=== PATIENT | male | born 1965 | race Hispanic/Latino ===

== ENCOUNTER 2018-01-31 11:36 | Emergency (ER) | payer OTHER ==
[2018-01-31] MEDS ORDERED: DEXAMETHASONE 10 MG/ML VIAL ONE (13:29)
[2018-01-31] MEDS ORDERED: KETOROLAC 30 MG/ML INJ ONE (13:30)
--- NOTE | 2018-01-31 13:31 | EDPHYS ---
Physician Documentation [facility] Name: Dimitrios Hernandez Age: 52 yrs Sex: Male : 1965 Arrival Date: 01/31/2018 Time: 11:37 Bed Treatment Private MD: ED Physician Thomas Arechiga HPI: 01/31 13:22 This 52 yrs old Male presents to ER via Ambulatory with complaints of Arm Pain.ps1 13:22 The patient or guardian complains of decreased range of motion. The complaints affect ps1 the right arm. Context: resulted from unknown cause. Onset: The symptoms/episode began/occurred 1 week(s) ago. Treatment prior to arrival includes: no previous treatment. Modifying factors: The symptoms are alleviated by hydrocodone, but patient is out and his doctor moved to [place] per patient. . Associated signs and symptoms: The patient has no apparent associated signs or symptoms. Severity of symptoms: At their worst the symptoms were moderate, in the emergency department the symptoms are unchanged. has chronic pain. Historical: - Allergies: 11:45 No Known Allergies; ph - PMHx: 11:45 CAD; cancer, colon; Hypertension; Myocardial infarction; Seizures; ph - Immunization history:: Adult Immunizations unknown. - Social history:: Smoking status: Patient uses tobacco products, smokes one-half pack cigarettes per day. ROS: 13:22 Constitutional: Negative for fever, chills, and weight loss, Eyes: Negative for injury, ps1 pain, redness, and discharge, Cardiovascular: Negative for chest pain, palpitations, and edema, Respiratory: Negative for shortness of breath, cough, wheezing, and pleuritic chest pain, Abdomen/GI: Negative for abdominal pain, nausea, vomiting, diarrhea, and constipation, Back: Negative for injury and pain, Skin: Negative for injury, rash, and discoloration, Neuro: Negative for headache, weakness, numbness, tingling, and seizure. 13:22 MS/extremity: Positive for pain. Exam: 13:22 Constitutional: This is a well developed, well nourished patient who is awake, alert, ps1 and in no acute distress. Head/Face: Normocephalic, atraumatic. Eyes: Pupils equal round and reactive to light, extra-ocular motions intact. Lids and lashes normal. Conjunctiva and sclera are non-icteric and not injected. ENT: Nares patent. No nasal discharge, no septal abnormalities noted. Tympanic membranes are normal and external auditory canals are clear. Oropharynx with no redness, swelling, or masses, exudates, or evidence of obstruction, uvula midline. Mucous membranes moist. Chest/axilla: Normal chest wall appearance and motion. Nontender with no deformity. No lesions are appreciated. Cardiovascular: Regular rate and rhythm. No gallops, murmurs, or rubs. Normal PMI, no JVD. No pulse deficits. Respiratory: Lungs have equal breath sounds bilaterally, clear to auscultation and percussion. No rales, rhonchi or wheezes noted. No increased work of breathing, no retractions or nasal flaring. Abdomen/GI: Soft, non-tender, with normal bowel sounds. No distension or tympany. No guarding or rebound. No evidence of tenderness throughout. Back: No spinal tenderness. No costovertebral tenderness. Full range of motion. 13:22 Musculoskeletal/extremity: Extremities: grossly normal except: noted in the right arm: decreased ROM, however can abduct the arm when distracted. Other movements WNL. . Vital Signs: 11:43 BP 127 / 87; Pulse 61; Resp 18; Temp 98.2; Pulse Ox 100% on R/A; Weight 58.97 kg; ph Height 5 ft. 4 in. (162.56 cm); Pain 10/10; 13:35 BP 125 / 81; Pulse 67; Resp 14; Temp 98; Pulse Ox 99% ; Pain 8/10; rs2 11:43 Body Mass Index 22.31 (58.97 kg, 162.56 cm) ph MDM: 13:22 ED course: Pt out of hydrocodone. Pt needs new pain medication Pt will follow up ps1 with Jessica or Deanna for MRI/EMG and pain control. Toradol and decadron in ED. Home with anaprox, medrol, robaxin. 13:30 Patient medically screened. ps1 01/31 13:09 Order name: Extremity Venous Uni Ltd; Complete Time: 14:23 EDMS Administered Medications: 13:59 Drug: TORadol 30 mg Route: IM; Site: right gluteus; rs2 13:59 Drug: Decadron 10 mg Route: IM; Site: right gluteus; rs2 Disposition: 01/31/18 13:30 Discharged to Home. Impression: Pain in right arm. - Condition is Stable. - Discharge Instructions: Musculoskeletal Pain. - Prescriptions for Anaprox DS 550 mg Oral Tablet - take 1 tablet by ORAL route every 12 hours As needed; 20 tablet. Robaxin 500 mg Oral Tablet - take 2 tablet by ORAL route every 6 hours As needed; 40 tablet. Medrol (Ismael) 4 mg Oral Tablets, Dose Pack - take 1 tablet by ORAL route as directed - follow package instructions; 1 packet. - Medication Reconciliation Form, Thank You Letter, Antibiotic Education, Prescription Opioid Use form. - Follow up: Emergency Department; When: As needed; Reason: Worsening of condition. Follow up: Carson Lopez MD; When: Upon discharge from the Emergency Department; Reason: Recheck today's complaints, Continuance of care, Re-evaluation by your physician. Signatures: Dispatcher [employer] Zara Ramos RN RN Ela Schmidt RN RN Rony, Lian rs2 Thomas Arechiga MD MD ps1 Corrections: (The following items were deleted from the chart) 13:16 13:01 Extremity Venous Uni Ltd+VAS.RAD.BRZ ordered. [facility] EDTX
--- NOTE | 2018-01-31 13:31 | ER ---
Nurse's Notes [facility] Name: Dimitrios Hernandez Age: 52 yrs Sex: Male : 1965 Arrival Date: 01/31/2018 Time: 11:37 Bed Treatment Private MD: Diagnosis: Pain in right arm Presentation: 01/31 11:41 Presenting complaint: Patient states: " My right arm has been hurting for about a week" ph Pt denies injury, no swelling noted, denies numbness/tingling, no swelling noted, radial pulses strong and equal. Transition of care: patient was not received from another setting of care. Onset of symptoms was January 31, 2018. Initial Sepsis Screen: Does the patient meet any 2 criteria? No. Patient's initial sepsis screen is negative. Does the patient have a suspected source of infection? No. Patient's initial sepsis screen is negative. Care prior to arrival: None. 11:41 Method Of Arrival: Ambulatory 11:41 Acuity: ANTOINE 4 ph Historical: - Allergies: 11:45 No Known Allergies; ph - PMHx: 11:45 CAD; cancer, colon; Hypertension; Myocardial infarction; Seizures; ph - Immunization history:: Adult Immunizations unknown. - Social history:: Smoking status: Patient uses tobacco products, smokes one-half pack cigarettes per day. Screenin:22 Abuse screen: Denies threats or abuse. Nutritional screening: No deficits noted. rs2 Tuberculosis screening: No symptoms or risk factors identified. Fall Risk None identified. Assessment: 13:22 General: Appears in no apparent distress. well groomed, well developed, Behavior is rs2 calm, cooperative, appropriate for age. Pain: Complains of pain in anterior aspect of right shoulder, right bicep and dorsal aspect of right forearm Pain currently is 10 out of 10 on a pain scale. Quality of pain is described as aching, Is continuous, Aggravated by increased activity, Noted to be. Neuro: No deficits noted. Cardiovascular: No deficits noted. Respiratory: No deficits noted. Musculoskeletal: Tenderness present in anterior aspect of right shoulder Reports Limited ROM noted to right arm. Pt c/o right shoulder pain radiating down right arm. Pt denies injury. Vital Signs: 11:43 BP 127 / 87; Pulse 61; Resp 18; Temp 98.2; Pulse Ox 100% on R/A; Weight 58.97 kg; ph Height 5 ft. 4 in. (162.56 cm); Pain 10/10; 13:35 BP 125 / 81; Pulse 67; Resp 14; Temp 98; Pulse Ox 99% ; Pain 8/10; rs2 11:43 Body Mass Index 22.31 (58.97 kg, 162.56 cm) ph ED Course: 11:37 Patient arrived in ED. as 11:43 Triage completed. ph 11:45 Arm band placed on. ph 13:13 Thomas Arechiga MD is Attending Physician. ps1 13:19 Patient taken to ultrasound. via wheelchair. lc3 13:22 Lian Uribe is Primary Nurse. rs2 13:22 Patient has correct armband on for positive identification. Bed in low position. Call rs2 light in reach. Side rails up X 1. 13:30 Carson Lopez MD is Referral Physician. ps1 13:48 Extremity Venous Uni Ltd In Process Unspecified. EDMS Administered Medications: 13:59 Drug: TORadol 30 mg Route: IM; Site: right gluteus; rs2 13:59 Drug: Decadron 10 mg Route: IM; Site: right gluteus; rs2 Outcome: 13:30 Discharge ordered by . ps1 14:45 Patient left the ED. iw Signatures: Dispatcher [employer] EDMS Marita Escobar Irene, RN RN Ela Schmidt RN RN Lenard [facility] Lian Uribe rs2 Thomas Arechiga MD MD ps1
--- NOTE | 2018-01-31 14:15 | RAD REPORT ---
EXAM DESCRIPTION: VAS - Extremity Venous Uni Ltd - 01/31/2018 1:49 pm CLINICAL HISTORY: Right upper extremity pain COMPARISON: None. FINDINGS: Right upper extremity venous system was interrogated with Doppler technique. Normal flow, compressibility and augmentation was noted. There is no DVT present. Small crescentic fluid collections about the right shoulder noted which could indicate bursitis. IMPRESSION: No evidence of right upper extremity deep venous thrombosis.
[2018-01-31 14:52] VITALS: BP 125/81; TEMP 98; O2SAT 99
== END 2018-01-31 14:45 | disposition home or self-care (01) ==
LOC: ER 11:36
DX: M79.601 Pain in right arm (principal); I10 Essential (primary) hypertension; F17.210 Nicotine dependence, cigarettes, uncomplicated; Z85.038 Personal history of other malignant neoplasm of large intestine
CPT/HCPCS: 93971; 96372; 99284; J1100

== ENCOUNTER 2019-07-28 14:29 | Emergency (ER) | payer OTHER ==
[2019-07-28 15:24] LABS: Hematocrit 39.8 % (39.6-49.0); Lymphocytes % 22.8 % (15.3-44.8); MPV 9.4 fL (7.6-11.3)
[2019-07-28 15:25] LABS: Absolute Lymphocytes (CBC) 1.7 K/uL (0.7-4.9); Basophils % 0.7 % (0-1.3)
[2019-07-28 15:45] LABS: Albumin 3.7 g/dL (3.4-5.0); Bilirubin Direct 0.3 mg/dL (0-0.2); Bilirubin Total 1.6 mg/dL (0.2-1.0); Potassium 3.6 mmol/L (3.5-5.1)
--- NOTE | 2019-07-28 17:31 | RAD REPORT ---
EXAM DESCRIPTION: CTAbdomen Pelvis W Contrast - 07/28/2019 5:07 pm CLINICAL HISTORY: Abdominal pain. abd pain COMPARISON: Abdomen Pelvis W Contrast dated 07/17/2017; Abdomen Pelvis W Contrast dated 04/18/2017; Abdomen Pelvis W Contrast dated 11/17/2016 TECHNIQUE: Biphasic CT imaging of the abdomen and pelvis was performed with 100 ml non-ionic IV cont rast. All CT scans are performed using dose optimization technique as appropriate and may include automated exposure control or mA/KV adjustment according to patient size. FINDINGS: The lung bases are clear. The liver, spleen, pancreas, adrenal glands and kidneys are within normal limits. No bowel obstruction, free air, free fluid or abscess. The appendix is normal. No evidence of signi ficant lymphadenopathy. No suspicious bony findings. IMPRESSION: No acute intra-abdominal or pelvic finding.
--- NOTE | 2019-07-28 17:35 | ER ---
Nurse's Notes [facility] Name: Dimitrios Hernandez Age: 53 yrs Sex: Male : 1965 Arrival Date: 07/28/2019 Time: 14:35 Bed 20 Private MD: Unknown, Unknown Diagnosis: Lower abdominal pain, unspecified Presentation: 07/28 14:40 Presenting complaint: Patient states: I had Colon CA about 2 years ago and the pain is la1 in the same place now and they told me it will probably come back. Transition of care: patient was not received from another setting of care. Onset of symptoms was July 28, 2019. Risk Assessment: Do you want to hurt yourself or someone else? Patient reports no desire to harm self or others. Initial Sepsis Screen: Does the patient meet any 2 criteria? No. Patient's initial sepsis screen is negative. Does the patient have a suspected source of infection? No. Patient's initial sepsis screen is negative. Care prior to arrival: None. 14:40 Method Of Arrival: Ambulatory la1 14:40 Acuity: ANTOINE 3 la1 Historical: - Allergies: 14:41 No Known Allergies; la1 - PMHx: 14:41 CAD; cancer, colon; Hypertension; Myocardial infarction; Seizures; la1 - Immunization history:: Adult Immunizations up to date. - Social history:: Smoking status: Patient/guardian denies using tobacco. - Ebola Screening: : No symptoms or risks identified at this time. Screenin:12 Abuse screen: Denies threats or abuse. Nutritional screening: No deficits noted. em Tuberculosis screening: No symptoms or risk factors identified. Fall Risk None identified. Assessment: 15:00 General: Appears in no apparent distress. comfortable, Behavior is calm, cooperative, em Denies fever. Pain: Complains of pain in left lower quadrant Pain currently is 8 out of 10 on a pain scale. Quality of pain is described as sharp. Neuro: Level of Consciousness is awake, alert, obeys commands, Oriented to person, place, time, situation, Appropriate for age. Cardiovascular: Denies chest pain, Capillary refill < 3 seconds Patient's skin is warm and dry. Respiratory: Airway is patent Respiratory effort is even, unlabored, Respiratory pattern is regular, symmetrical. GI: Abdomen is flat, Bowel sounds present X 4 quads. Abd is soft X 4 quads Abdomen is tender to palpation in left lower quadrant Patient currently denies nausea, vomiting. Derm: Skin is intact, is healthy with good turgor, Skin is pink, warm \T\ dry. Musculoskeletal: Capillary refill < 3 seconds, Range of motion: intact in all extremities. 15:34 Reassessment: Patient appears in no apparent distress at this time. Patient and/or em family updated on plan of care and expected duration. Pain level reassessed. Patient is alert, oriented x 3, equal unlabored respirations, skin warm/dry/pink. finished PO contrast, tolerated well, CT notified. 16:52 Reassessment: Patient appears in no apparent distress at this time. Patient and/or em family updated on plan of care and expected duration. Pain level reassessed. Patient is alert, oriented x 3, equal unlabored respirations, skin warm/dry/pink. 17:44 Reassessment: Patient appears in no apparent distress at this time. Patient and/or em family updated on plan of care and expected duration. Pain level reassessed. Patient is alert, oriented x 3, equal unlabored respirations, skin warm/dry/pink. Vital Signs: 14:41 BP 138 / 87; Pulse 98; Resp 16; Temp 98.6; Pulse Ox 100% on R/A; Weight 63.5 kg; Height la1 5 ft. 6 in. (167.64 cm); 15:52 BP 144 / 82; Pulse 61; Resp 20; Pulse Ox 100% on R/A; Pain 8/10; em 16:52 BP 126 / 61; Pulse 75; Resp 18; Pulse Ox 98% on R/A; em 17:45 BP 124 / 73; Pulse 70; Resp 18; Pulse Ox 99% on R/A; Pain 5/10; em 14:41 Body Mass Index 22.60 (63.50 kg, 167.64 cm) la1 ED Course: 14:35 Patient arrived in ED. ag5 14:35 None, None is Private Physician. ag5 14:35 Unknown, Unknown is Private Physician. ag5 14:41 Triage completed. la1 14:42 Arm band placed on left wrist. la1 14:44 Getachew Everett LVN is Primary Nurse. em 14:52 Jonna Neves FNP-C is PHCP. snw 14:52 Floyd Reyes MD is Attending Physician. snw 15:10 Initial lab(s) drawn, by me, sent to lab. Inserted saline lock: 20 gauge in right em forearm, using aseptic technique. Blood collected. 15:12 Patient has correct armband on for positive identification. Placed in gown. Bed in low em position. Call light in reach. Pulse ox on. NIBP on. 17:06 CT completed. Patient tolerated procedure well. Patient moved back from CT. bq 17:07 Abdomen In Process Unspecified. EDMS 17:50 No provider procedures requiring assistance completed. IV discontinued, intact, em bleeding controlled, No redness/swelling at site. Pressure dressing applied. Administered Medications: No medications were administered Outcome: 17:34 Discharge ordered by . snw 17:50 Discharged to home ambulatory. em 17:50 Condition: good 17:50 Discharge instructions given to patient, Instructed on discharge instructions, follow up and referral plans. medication usage, Demonstrated understanding of instructions, follow-up care, medications, Prescriptions given X 1. 17:51 Patient left the ED. em Signatures: Dispatcher [employer] EDMS Jonna Neves, MATERIAL COORDINATOR-C MATERIAL COORDINATOR-Csnw Xuan Herrera bq Karlos, Getachew, ROUGH CARPENTER ROUGH CARPENTER em Emmanuel Anderson, RN RN la1 Floridalma Valadez ag5 Corrections: (The following items were deleted from the chart) 17:45 15:52 BP 144 / 82; Pulse 61bpm; Resp 20bpm; Pulse Ox 100% RA; em em
--- NOTE | 2019-07-28 17:35 | EDPHYS ---
Physician Documentation [facility] Name: Dimitrios Hernandez Age: 53 yrs Sex: Male : 1965 Arrival Date: 07/28/2019 Time: 14:35 Bed 20 Private MD: Unknown, Unknown ED Physician Floyd Reyes HPI: 07/28 15:28 This 53 yrs old Male presents to ER via Ambulatory with complaints of snw Abdominal Pain. 15:28 The patient presents with abdominal pain right lower quadrant. Onset: The snw symptoms/episode began/occurred gradually, 2 week(s) ago, and became persistent. The symptoms do not radiate. Associated signs and symptoms: none. The symptoms are described as steady, vague. Severity of pain: At its worst the pain was moderate. The patient has experienced a previous episode, and the symptoms today are exactly the same. The patient has not recently seen a physician. Historical: - Allergies: 14:41 No Known Allergies; la1 - PMHx: 14:41 CAD; cancer, colon; Hypertension; Myocardial infarction; Seizures; la1 - Immunization history:: Adult Immunizations up to date. - Social history:: Smoking status: Patient/guardian denies using tobacco. - Ebola Screening: : No symptoms or risks identified at this time. ROS: 15:27 Constitutional: Negative for fever, chills, and weight loss, Eyes: Negative for injury, snw pain, redness, and discharge, ENT: Negative for injury, pain, and discharge, Neck: Negative for injury, pain, and swelling, Cardiovascular: Negative for chest pain, palpitations, and edema, Respiratory: Negative for shortness of breath, cough, wheezing, and pleuritic chest pain, Back: Negative for injury and pain, : Negative for injury, bleeding, discharge, and swelling, MS/Extremity: Negative for injury and deformity, Skin: Negative for injury, rash, and discoloration, Neuro: Negative for headache, weakness, numbness, tingling, and seizure, Psych: Negative for depression, anxiety, suicide ideation, homicidal ideation, and hallucinations. 15:27 Abdomen/GI: Positive for abdominal pain, of the left lower quadrant. Exam: 15:27 Constitutional: This is a well developed, well nourished patient who is awake, alert, snw and in no acute distress. Head/Face: Normocephalic, atraumatic. Eyes: Pupils equal round and reactive to light, extra-ocular motions intact. Lids and lashes normal. Conjunctiva and sclera are non-icteric and not injected. Cornea within normal limits. Periorbital areas with no swelling, redness, or edema. ENT: Nares patent. No nasal discharge, no septal abnormalities noted. Tympanic membranes are normal and external auditory canals are clear. Oropharynx with no redness, swelling, or masses, exudates, or evidence of obstruction, uvula midline. Mucous membranes moist. Neck: Trachea midline, no thyromegaly or masses palpated, and no cervical lymphadenopathy. Supple, full range of motion without nuchal rigidity, or vertebral point tenderness. No Meningismus. Chest/axilla: Normal chest wall appearance and motion. Nontender with no deformity. No lesions are appreciated. Cardiovascular: Regular rate and rhythm with a normal S1 and S2. No gallops, murmurs, or rubs. Normal PMI, no JVD. No pulse deficits. Respiratory: Lungs have equal breath sounds bilaterally, clear to auscultation and percussion. No rales, rhonchi or wheezes noted. No increased work of breathing, no retractions or nasal flaring. Back: No spinal tenderness. No costovertebral tenderness. Full range of motion. Skin: Warm, dry with normal turgor. Normal color with no rashes, no lesions, and no evidence of cellulitis. MS/ Extremity: Pulses equal, no cyanosis. Neurovascular intact. Full, normal range of motion. Neuro: Awake and alert, GCS 15, oriented to person, place, time, and situation. Cranial nerves II-XII grossly intact. Motor strength 5/5 in all extremities. Sensory grossly intact. Cerebellar exam normal. Normal gait. Psych: Awake, alert, with orientation to person, place and time. Behavior, mood, and affect are within normal limits. 15:27 Abdomen/GI: Inspection: scar(s), are noted in the midline, Bowel sounds: hyperactive, in all quadrants, Palpation: mild abdominal tenderness, in the left lower quadrant. Vital Signs: 14:41 BP 138 / 87; Pulse 98; Resp 16; Temp 98.6; Pulse Ox 100% on R/A; Weight 63.5 kg; Height la1 5 ft. 6 in. (167.64 cm); 15:52 BP 144 / 82; Pulse 61; Resp 20; Pulse Ox 100% on R/A; Pain 8/10; em 16:52 BP 126 / 61; Pulse 75; Resp 18; Pulse Ox 98% on R/A; em 17:45 BP 124 / 73; Pulse 70; Resp 18; Pulse Ox 99% on R/A; Pain 5/10; em 14:41 Body Mass Index 22.60 (63.50 kg, 167.64 cm) la1 MDM: 14:59 Patient medically screened. snw 17:37 Data reviewed: vital signs, nurses notes. Data interpreted: Pulse oximetry: on room air snw is 98 %. Interpretation: normal. Counseling: I had a detailed discussion with the patient and/or guardian regarding: the historical points, exam findings, and any diagnostic results supporting the discharge/admit diagnosis. 07/28 14:53 Order name: Basic Metabolic Panel; Complete Time: 15:46 snw 07/28 14:53 Order name: CBC with Diff; Complete Time: 15:29 snw 07/28 14:53 Order name: Creatinine for Radiology; Complete Time: 15:39 snw 07/28 14:53 Order name: Hepatic Function; Complete Time: 15:46 snw 07/28 14:53 Order name: Lipase; Complete Time: 15:46 snw 07/28 14:53 Order name: IV Saline Lock; Complete Time: 15:12 snw 07/28 14:53 Order name: Labs collected and sent; Complete Time: 15:12 snw 07/28 15:06 Order name: Abdomen ; Complete Time: 17:34 EDMS Administered Medications: No medications were administered Disposition: 07/29 07:15 Co-signature as Attending Physician, Floyd Reyes MD I agree with the assessment and kdr plan of care. Disposition: 07/28/19 17:34 Discharged to Home. Impression: Lower abdominal pain, unspecified. - Condition is Stable. - Discharge Instructions: Abdominal Pain, Adult. - Prescriptions for Bentyl 20 mg Oral Tablet - take 1 tablet by ORAL route every 6 hours As needed; 20 tablet. - Medication Reconciliation Form, Thank You Letter, Antibiotic Education, Prescription Opioid Use form. - Follow up: Private Physician; When: 2 - 3 days; Reason: Recheck today's complaints, Continuance of care, Re-evaluation by your physician. Follow up: Emergency Department; When: As needed; Reason: Worsening of condition. Signatures: Dispatcher [employer] [facility] Floyd Reyes MD MD [facility] Jonna Neevs, FLIGHT TEST SHOP MECHANIC-C FLIGHT TEST SHOP MECHANIC-Csnw Getachew Everett, AUTO ELECTRICAL TECHNICIAN AUTO ELECTRICAL TECHNICIAN em Emmanuel Anderson, RN RN la1 Corrections: (The following items were deleted from the chart) 07/28 15:10 15:06 Abdomen Pelvis W Con+CT.RAD.BRZ ordered. [facility] 17:51 17:34 07/28/2019 17:34 Discharged to Home. Impression: Lower abdominal pain, em unspecified. Condition is Stable. Forms are Medication Reconciliation Form, Thank You Letter, Antibiotic Education, Prescription Opioid Use. Follow up: Private Physician; When: 2 - 3 days; Reason: Recheck today's complaints, Continuance of care, Re-evaluation by your physician. Follow up: Emergency Department; When: As needed; Reason: Worsening of condition. snw
[2019-07-28 19:12] VITALS: TEMP 98.6
[2019-07-28 19:16] VITALS: BP 124/73; O2SAT 99
== END 2019-07-28 17:51 | disposition home or self-care (01) ==
LOC: ER 14:29
DX: R10.31 Right lower quadrant pain (principal); I10 Essential (primary) hypertension; I25.2 Old myocardial infarction; Z85.038 Personal history of other malignant neoplasm of large intestine
CPT/HCPCS: 85025; 80048; 36415; 80076; 83690; 74177; 99284; Q9967

== ENCOUNTER 2022-01-18 16:22 | Emergency (ER) | payer OTHER ==
[2022-01-18] MEDS ORDERED: TETANUS & DIPHTHERIA TOX,ADULT 0.5 ML VIAL ONE (19:55)
--- NOTE | 2022-01-18 20:12 | EDPHYS ---
Physician Documentation [facility] Name: Dimitrios Hernandez Age: 56 yrs Sex: Male : 1965 Arrival Date: 01/18/2022 Time: 16:24 Bed Treatment Private MD: ED Physician Kyle Leon HPI: 01/18 17:18 This 56 yrs old Male presents to ER via Unassigned with complaints of Foreign pm1 Body In Eye. 17:18 The patient is experiencing foreign body sensation, to the left eye, caused by debris. pm1 Onset: The symptoms/episode began/occurred yesterday. Duration: the symptoms are continuous. Aggravated by nothing. Alleviated by nothing. Associated signs and symptoms: Pertinent negatives: vision changes. Patient does not utilize any form of vision correction. Severity of symptoms: in the emergency department the symptoms are unchanged. The patient has not experienced similar symptoms in the past. The patient has not recently seen a physician. Grandchild hit a pole next to him and debris from the pole possibly landed in his left eye. Historical: - Allergies: 17:18 No Known Allergies; ph - PMHx: 17:18 CAD; cancer, colon; Hypertension; Myocardial infarction; Seizures; ph - Immunization history:: Adult Immunizations unknown. - Social history:: Smoking status: Patient reports the use of cigarette tobacco products, denies chronic smoking, but will smoke occasionally. ROS: 17:18 Constitutional: Negative for fever, chills, and weight loss. pm1 17:18 Cardiovascular: Negative for chest pain, palpitations, and edema, Respiratory: Negative for shortness of breath, cough, wheezing, and pleuritic chest pain, Skin: Negative for injury, rash, and discoloration, Neuro: Negative for headache, weakness, numbness, tingling, and seizure. 17:18 Eyes: Positive for pain, redness, of the left eye, Negative for visual disturbance. 17:18 All other systems are negative. Exam: 17:18 Constitutional: This is a well developed, well nourished patient who is awake, alert, pm1 and in no acute distress. Head/Face: Normocephalic, atraumatic. 17:18 Skin: Warm, dry with normal turgor. Normal color with no rashes, no lesions, and no evidence of cellulitis. MS/ Extremity: Pulses equal, no cyanosis. Neurovascular intact. Full, normal range of motion. 17:18 Eyes: Periorbital structures: appear normal, Pupils: no acute changes, Extraocular movements: no acute changes, Conjunctiva: injected, in the left eye, Examination of the other eye reveals no obvious gross abnormality. 17:18 Cardiovascular: Exam negative for acute changes, Rate: normal, Rhythm: regular, Pulses: no pulse deficits are appreciated. 17:18 Respiratory: Exam negative for acute changes, respiratory distress, shortness of breath. 17:18 Neuro: Exam negative for acute changes, Orientation: is normal, Mentation: is normal, Motor: moves all fours. 20:06 Eyes: Corneas: abrasion, is not appreciated, foreign body, on the left, at 10 o'clock, pm1 black circular object the size of a pin head. A small portion of the foreign body was removed with NS soaked Q-tip but a majority of the foreign body remains, a fluorescein strip employed to appreciate the findings. Vital Signs: 17:16 BP 136 / 93; Pulse 52; Resp 18; Temp 98.4; Pulse Ox 97% on R/A; Weight 70.31 kg; Height ph 5 ft. 6 in. (167.64 cm); 19:59 BP 157 / 89; Pulse 59; Resp 17; Pulse Ox 98% on R/A; ab2 17:16 Body Mass Index 25.02 (70.31 kg, 167.64 cm) ph MDM: 17:17 Patient medically screened. pm1 17:21 Data reviewed: vital signs. Data interpreted: Pulse oximetry: on room air is 97 %. pm1 Interpretation: normal. 20:06 ED course: Explained to the patient I am unable to remove the foreign body from his eye pm1 and that a portion of it was removed with a sterile NS soaked q-tip but he will need to see Ophthalmology for definite removal of the foreign body. 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 Exp: ab2 12/26/2023. Lot #: [id number]. } Route: IM; Site: left deltoid; 19:57 Drug: Tetracaine Drops 0.5 % 1 drops Route: Ophthalmic; Site: right eye; ab2 20:15 Drug: Gentamicin Drops 0.3 % 2 drops Route: Ophthalmic; Site: left eye; ab2 Disposition Summary: 01/18/22 20:11 Discharge Ordered Location: Home pm1 Problem: new pm1 Symptoms: have improved pm1 Condition: Stable pm1 Diagnosis - Foreign body in cornea, left eye pm1 Followup: pm1 - With: Emergency Department - When: As needed - Reason: Worsening of condition Followup: pm1 - With: Valorie Wilkerson MD - When: 1 - 2 days - Reason: Recheck today's complaints, Continuance of care, Re-evaluation by your physician Discharge Instructions: - Discharge Summary Sheet pm1 - Eye Foreign Body pm1 Forms: - Medication Reconciliation Form pm1 - Thank You Letter pm1 - Antibiotic Education pm1 - Prescription Opioid Use pm1 Prescriptions: - Vigamox 0.5 % Ophthalmic Drops - instill 1 drop by OPHTHALMIC route every 8 hours for 7 days; 5 milliliter; pm1 Refills: 0, Product Selection Permitted Addendum: 01/25/2022 19:11 Co-signature as Attending Physician, Kyle Leon MD. r n Signatures: Kyle Leon MD MD rn Hall, Patricia, RN RN Jose Doran, ARIN PROSTHETIST pm1 Connor Melo ab2
--- NOTE | 2022-01-18 20:12 | ER ---
Nurse's Notes [facility] Name: Dimitrios Hernandez Age: 56 yrs Sex: Male : 1965 Arrival Date: 01/18/2022 Time: 16:24 Bed Treatment Private MD: Diagnosis: Foreign body in cornea, left eye Presentation: 01/18 17:16 Chief complaint: Patient states: Grandson was hitting a pole outside yesterday and I ph think a piece of metal went in my eye." L eye red and irritated. Denies vision loss. Coronavirus screen: Vaccine status: Patient reports being unvaccinated. Ebola Screen: No symptoms or risks identified at this time. Initial Sepsis Screen: Does the patient meet any 2 criteria? No. Patient's initial sepsis screen is negative. Does the patient have a suspected source of infection? No. Patient's initial sepsis screen is negative. Risk Assessment: Do you want to hurt yourself or someone else? Patient reports no desire to harm self or others. Onset of symptoms was January 18, 2022. 17:16 Method Of Arrival: Ambulatory ph 17:16 Acuity: ANTOINE 4 ph Triage Assessment: 17:18 General: Appears in no apparent distress. comfortable, Behavior is calm, cooperative, ph appropriate for age. Pain: Complains of pain in left eye. EENT: Sclera/Cornea are reddened in left eye. Historical: - Allergies: 17:18 No Known Allergies; ph - PMHx: 17:18 CAD; cancer, colon; Hypertension; Myocardial infarction; Seizures; ph - Immunization history:: Adult Immunizations unknown. - Social history:: Smoking status: Patient reports the use of cigarette tobacco products, denies chronic smoking, but will smoke occasionally. Screenin:58 Abuse screen: Denies threats or abuse. Denies injuries from another. Nutritional ab2 screening: No deficits noted. Tuberculosis screening: No symptoms or risk factors identified. Fall Risk None identified. Assessment: 19:57 General: Appears in no apparent distress. comfortable, Behavior is calm, cooperative, ab2 appropriate for age. Pain: Complains of pain in left eye. Neuro: Level of Consciousness is awake, alert, obeys commands, Oriented to person, place, time, situation, Appropriate for age Drop Wire Builder are equal bilaterally Moves all extremities. Gait is steady, Speech is normal, Facial symmetry appears normal. Cardiovascular: No deficits noted. Denies chest pain, shortness of breath, Patient's skin is warm and dry. Respiratory: Airway is patent Respiratory effort is even, unlabored, Respiratory pattern is regular, symmetrical, Breath sounds are clear bilaterally. GI: No deficits noted. No signs and/or symptoms were reported involving the gastrointestinal system. Abdomen is round non-distended, Bowel sounds present X 4 quads. : No deficits noted. No signs and/or symptoms were reported regarding the genitourinary system. EENT: Reports blurred vision in left eye pain in left eye. Derm: No deficits noted. Skin is intact. Vital Signs: 17:16 BP 136 / 93; Pulse 52; Resp 18; Temp 98.4; Pulse Ox 97% on R/A; Weight 70.31 kg; Height ph 5 ft. 6 in. (167.64 cm); 19:59 BP 157 / 89; Pulse 59; Resp 17; Pulse Ox 98% on R/A; ab2 17:16 Body Mass Index 25.02 (70.31 kg, 167.64 cm) ph ED Course: 16:24 Patient arrived in ED. ds1 16:29 Jose Garg NP is PHCP. pm1 16:29 Kyle Leon MD is Attending Physician. pm1 17:18 Triage completed. ph 17:19 Arm band placed on Patient placed in waiting room, Patient notified of wait time. ph 19:54 Connor Melo is Primary Nurse. ab2 19:58 Assist provider with eye exam. ab2 19:59 Patient has correct armband on for positive identification. Bed in low position. Call ab2 light in reach. Side rails up X2. 20:11 Valorie Wilkerson MD is Referral Physician. pm1 20:21 Patient did not have IV access during this emergency room visit. 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 Exp: ab2 12/26/2023. Lot #: [id number]. } Route: IM; Site: left deltoid; 19:57 Drug: Tetracaine Drops 0.5 % 1 drops Route: Ophthalmic; Site: right eye; ab2 20:15 Drug: Gentamicin Drops 0.3 % 2 drops Route: Ophthalmic; Site: left eye; ab2 Outcome: 20:11 Discharge ordered by . pm1 20:21 Discharged to home ambulatory. ab2 20:21 Condition: good 20:21 Discharge instructions given to patient, Instructed on discharge instructions, follow up and referral plans. medication usage, Demonstrated understanding of instructions, follow-up care, medications, Prescriptions given X 1. 20:21 Patient left the ED. ab2 Signatures: Tracey Sanders ds1 Ela Schmidt RN RN Jose Doran NP LEGAL TRANSCRIBER pm1 Connor Melo ab2
[2022-01-18] MEDS ORDERED: GENTAMICIN 0.3% OPTH DROP 5ML ONE (20:18)
[2022-01-18 20:33] VITALS: TEMP 98.4
[2022-01-18 20:34] VITALS: BP 157/89; O2SAT 98
== END 2022-01-18 20:21 | disposition home or self-care (01) ==
LOC: ER 16:22
PROC: 08C9XZZ Extirpation of Matter from Left Cornea, External Approach (ICD-10-PCS; principal; 2022-01-18)
DX: T15.02XA Foreign body in cornea, left eye, initial encounter (principal); I10 Essential (primary) hypertension; I25.2 Old myocardial infarction; F17.210 Nicotine dependence, cigarettes, uncomplicated; Z23 Encounter for immunization; Z85.038 Personal history of other malignant neoplasm of large intestine
CPT/HCPCS: 90471; 90714; 99283

== ENCOUNTER 2022-03-30 09:25 | Emergency (ER) | payer OTHER ==
[2022-03-30 10:49] LABS: Absolute Lymphocytes (CBC) 2.3 K/uL (0.7-4.9); Lymphocytes % 28.3 % (15.3-44.8); MPV 9.7 fL (7.6-11.3); RBC Red Blood Cell Count 4.74 M/uL (4.33-5.43)
[2022-03-30 11:48] LABS: AST/SGOT 4 U/L (15-37); Albumin 3.5 g/dL (3.4-5.0); Alkaline Phosphatase 54 U/L (45-117); BUN Blood Urea Nitrogen 20 mg/dL (7-18); Bicarbonate 27 mmol/L (21-32); Bilirubin Total 0.5 mg/dL (0.2-1.0); Glomerular Filtration Rate 103 ml/min (=/>90); Glucose Level 87 mg/dL (74-106); Lipase 114 U/L (73-393); Potassium 3.7 mmol/L (3.5-5.1); Protein, Total 6.8 g/dL (6.4-8.2); Sodium Level 140 mmol/L (136-145)
[2022-03-30 11:58] LABS: ALT/SGPT < 10 U/L (12-78)
--- NOTE | 2022-03-30 12:32 | RAD REPORT ---
EXAM DESCRIPTION: CTAbdomen Pelvis W Contrast - 03/30/2022 12:20 pm CLINICAL HISTORY: Abdominal pain. Abdominal pain, acute, nonlocalized COMPARISON: Abdomen Pelvis W Contrast dated 07/28/2019; Abdomen Pelvis W Contrast dated 7; Abdomen Pelvis W Contrast dated 04/18/2017; Abdomen Pelvis W Contrast dated 11/17/2016 TECHNIQUE: Biphasic CT imaging of the abdomen and pelvis was performed with 100 ml non-ionic IV cont rast. All CT scans are performed using dose optimization technique as appropriate and may include automated exposure control or mA/KV adjustment according to patient size. FINDINGS: Mild linear atelectasis is seen in both lung bases. The liver, spleen, pancreas, adrenal glands and kidneys are within normal limits. No bowel obstruction, free air, free fluid or abscess. Postsurgical changes are present left colon. N o abnormality seen in the region. Moderate stool is seen throughout the colon. The appendix is normal . No evidence of significant lymphadenopathy. Postsurgical changes are present lumbar spine. IMPRESSION: No acute intra-abdominal or pelvic finding. Moderate retained stool throughout the colon .
--- NOTE | 2022-03-30 12:37 | ER ---
Nurse's Notes [facility] Name: Dimitrios Hernandez Age: 56 yrs Sex: Male : 1965 Arrival Date: 03/30/2022 Time: 09:27 Bed 2 Private MD: Diagnosis: Abdominal pain, Generalized Presentation: 03/30 09:44 Chief complaint: Patient states: he started having mid left abdominal pain approx 2 ap3 weeks ago. patient has a history of Colon cancer X's 2 (3 years ago) and has a concern it might be back due to the pain being in the same location as before. patient has reported intermittent N/V since the pain began. Coronavirus screen: At this time, the client does not indicate any symptoms associated with coronavirus-19. Ebola Screen: No symptoms or risks identified at this time. Initial Sepsis Screen: Does the patient meet any 2 criteria? RR > 20 per min. Does the patient have a suspected source of infection? Yes:. Risk Assessment: Do you want to hurt yourself or someone else? Patient reports no desire to harm self or others. Onset of symptoms was March 17, 2022. 09:44 Method Of Arrival: Ambulatory ap3 09:44 Acuity: ANTOINE 3 ap3 Triage Assessment: 09:46 General: Appears in no apparent distress. Behavior is calm, cooperative, appropriate ap3 for age. Pain: Complains of pain in left upper quadrant and left lower quadrant Pain began 2 weeks ago. Neuro: Level of Consciousness is awake, alert, obeys commands, Oriented to person, place, time, situation, Appropriate for age Gait is steady, Speech is normal. Cardiovascular: Patient's skin is warm and dry. Respiratory: Airway is patent Respiratory effort is even, unlabored, Respiratory pattern is regular, symmetrical. GI: Reports lower abdominal pain, upper abdominal pain, nausea, vomiting. 09:47 GI: Reports narrow and dark bowels. ap3 Historical: - Allergies: 09:45 No Known Allergies; ap3 - PMHx: 09:45 CAD; cancer, colon; Hypertension; Myocardial infarction; Seizures; ap3 - Immunization history:: Client reports having NOT received the Covid vaccine. - Social history:: Smoking status: Patient reports the use of cigarette tobacco products, smokes one-half pack cigarettes per day, Patient uses street drugs, cocaine. - Family history:: not pertinent. - Hospitalizations: : No recent hospitalization is reported. Screenin:47 Abuse screen: Denies threats or abuse. Nutritional screening: No deficits noted. ap3 Tuberculosis screening: No symptoms or risk factors identified. 10:34 Fall Risk None identified. bp Assessment: 10:30 General: SEE TRIAGE NOTE. bp 11:51 Reassessment: No changes from previously documented assessment. Patient and/or family bp updated on plan of care and expected duration. Pain level reassessed. 12:52 Reassessment: PT D/C HOME AMBULATORY, DX WITH UNSPECIFIED ABDOMINAL PAIN. bp Vital Signs: 09:44 BP 147 / 87; Pulse 44; Resp 17; Temp 98.5; Pulse Ox 100% ; Weight 70.31 kg; Height 5 ap3 ft. 6 in. (167.64 cm); Pain 7/10; 10:34 BP 141 / 70; Pulse 43; Resp 15; Pulse Ox 95% ; bp 11:50 BP 157 / 84; Pulse 42; Resp 14; Pulse Ox 100% ; bp 12:52 BP 154 / 94; Pulse 44; Resp 15; Pulse Ox 100% ; bp 09:44 Body Mass Index 25.02 (70.31 kg, 167.64 cm) ap3 ED Course: 09:27 Patient arrived in ED. rg4 09:38 Kyle Leon MD is Attending Physician. rn 09:45 Triage completed. ap3 09:47 Arm band placed on left wrist. ap3 10:20 Phill Almanza, [place] is Primary Nurse. bp 10:30 Inserted saline lock: 22 gauge in right forearm, using aseptic technique. Blood bp collected. 10:34 Patient has correct armband on for positive identification. Placed in gown. Bed in low bp position. Call light in reach. Side rails up X2. 12:22 CT Abd/Pelvis - IV Contrast Only In Process Unspecified. EDMS 12:40 Torsten Parr MD is Referral Physician. rn 12:52 No provider procedures requiring assistance completed. IV discontinued, intact, bp bleeding controlled, No redness/swelling at site. Pressure dressing applied. Administered Medications: No medications were administered Medication: 12:52 VIS not applicable for this client. bp Outcome: 12:37 Discharge ordered by MD. rn 12:52 Discharged to home ambulatory. bp 12:52 Condition: stable 12:52 Discharge instructions given to patient, Instructed on discharge instructions, follow up and referral plans. Demonstrated understanding of instructions, follow-up care. 12:53 Patient left the ED. bp Signatures: Dispatcher [employer] EDKyle Anaya MD MD rn Garcia, Rubi rg4 Phill Almanza RN RN bp Shelia Galaviz RN RN ap3
--- NOTE | 2022-03-30 12:37 | EDPHYS ---
Physician Documentation [facility] Name: Dimitrios Hernandez Age: 56 yrs Sex: Male : 1965 Arrival Date: 03/30/2022 Time: 09:27 Bed 2 Private MD: ED Physician Kyle Leon HPI: 03/30 09:52 This 56 yrs old Male presents to ER via Ambulatory with complaints of rn Abdominal Pain. 09:52 The patient presents with abdominal pain in the left lower quadrant. Onset: The rn symptoms/episode began/occurred 3 week(s) ago. The symptoms do not radiate. Associated signs and symptoms: Pertinent negatives: chest pain, constipation, diarrhea, fever, hematuria, shortness of breath, testicular pain. The symptoms are described as sharp. Modifying factors: The symptoms are alleviated by nothing, the symptoms are aggravated by touching the area. Severity of pain: At its worst the pain was moderate in the emergency department the pain is unchanged. The patient has experienced a previous episode. The patient has not recently seen a physician. Pt reports left sided abd pain for 2-3 weeks, sharp, non-radiating, similar to past when diagnosed with colon cancer. Reports had 2 surgeries for colon cancer, refused chemo/radiation. Told in past was cancer free. here today to see if cancer has returned. Also reports 10 lb weight loss over last few weeks, unintentional .. Historical: - Allergies: 09:45 No Known Allergies; ap3 - PMHx: 09:45 CAD; cancer, colon; Hypertension; Myocardial infarction; Seizures; ap3 - Immunization history:: Client reports having NOT received the Covid vaccine. - Social history:: Smoking status: Patient reports the use of cigarette tobacco products, smokes one-half pack cigarettes per day, Patient uses street drugs, cocaine. - Family history:: not pertinent. - Hospitalizations: : No recent hospitalization is reported. ROS: 09:52 Constitutional: Negative for fever, chills, + weight loss Eyes: Negative for injury, rn pain, redness, and discharge, Cardiovascular: Negative for chest pain, palpitations, and edema, Respiratory: Negative for shortness of breath, cough, wheezing, and pleuritic chest pain, Abdomen/GI: + abd pain Back: Negative for injury and pain, : Negative for injury, bleeding, discharge, and swelling, MS/Extremity: Negative for injury and deformity, Skin: Negative for injury, rash, and discoloration, Neuro: Negative for headache, weakness, numbness, tingling, and seizure. Exam: 09:52 Constitutional: Thin male, no acute distress Head/Face: Normocephalic, atraumatic. 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 No pulse deficits. Respiratory: No increased work of breathing, no retractions or nasal flaring. Abdomen/GI: soft, + tender LLQ tenderness, no mass or rebound Skin: Warm, dry MS/ Extremity: Pulses equal, no cyanosis. Neuro: Awake and alert, GCS 15 Vital Signs: 09:44 BP 147 / 87; Pulse 44; Resp 17; Temp 98.5; Pulse Ox 100% ; Weight 70.31 kg; Height 5 ap3 ft. 6 in. (167.64 cm); Pain 7/10; 10:34 BP 141 / 70; Pulse 43; Resp 15; Pulse Ox 95% ; bp 11:50 BP 157 / 84; Pulse 42; Resp 14; Pulse Ox 100% ; bp 12:52 BP 154 / 94; Pulse 44; Resp 15; Pulse Ox 100% ; bp 09:44 Body Mass Index 25.02 (70.31 kg, 167.64 cm) ap3 MDM: 09:38 Patient medically screened. rn 12:35 Differential diagnosis: bowel obstruction, diverticulitis, non-specific abd pain, rn pancreatitis, colon cancer, constipation. Data reviewed: vital signs, nurses notes, lab test result(s), radiologic studies, CT scan, and as a result, I will discharge patient. Counseling: I had a detailed discussion with the patient and/or guardian regarding: the historical points, exam findings, and any diagnostic results supporting the discharge/admit diagnosis, lab results, the need for outpatient follow up, to return to the emergency department if symptoms worsen or persist or if there are any questions or concerns that arise at home. Response to treatment: There is no appreciated change of the patient's symptoms at this time, and as a result, I will discharge patient. 12:36 Special discussion: I discussed with the patient/guardian in detail that at this point rn there is no indication for admission to the hospital. It is understood, however, that if the symptoms persist or worsen the patient needs to return immediately for re-evaluation. Based on the history and exam findings, there is no indication for further emergent testing or inpatient evaluation. I discussed with the patient/guardian the need to see the front office medical assistant for further evaluation of the symptoms. 03/30 09:46 Order name: CBC with Diff; Complete Time: 11:18 rn 03/30 09:46 Order name: CMP; Complete Time: 12:35 rn 03/30 09:46 Order name: Lipase; Complete Time: 12:35 rn 03/30 09:46 Order name: CT Abd/Pelvis - IV Contrast Only; Complete Time: 12:35 rn 03/30 09:46 Order name: IV Saline Lock; Complete Time: 10:33 rn 03/30 09:46 Order name: Labs collected and sent; Complete Time: 10:33 rn Administered Medications: No medications were administered Disposition Summary: 03/30/22 12:37 Discharge Ordered Location: Home rn Problem: an ongoing problem rn Symptoms: have improved rn Condition: Stable rn Diagnosis - Abdominal pain, Generalized rn Followup: rn - With: Private Physician - When: As needed - Reason: Recheck today's complaints, Re-evaluation by your physician Followup: rn - With: Torsten Parr MD - When: As needed - Reason: Recheck today's complaints, Re-evaluation by your physician Discharge Instructions: - Discharge Summary Sheet rn - Abdominal Pain, Adult rn Forms: - Medication Reconciliation Form rn - Thank You Letter rn - Antibiotic pattern vault clerk - Prescription Opioid Use rn Signatures: Dispatcher [employer] Kyle Allen MD MD rn Prokisch, Amanda, RN RN ap3
[2022-03-30 13:05] VITALS: TEMP 98.5
[2022-03-30 13:09] VITALS: O2SAT 100
[2022-03-30 13:11] VITALS: BP 154/94
== END 2022-03-30 12:53 | disposition home or self-care (01) ==
LOC: ER 09:25
DX: R10.84 Generalized abdominal pain (principal); Z85.038 Personal history of other malignant neoplasm of large intestine; I10 Essential (primary) hypertension; F17.210 Nicotine dependence, cigarettes, uncomplicated
CPT/HCPCS: 85025; 36415; 83690; 80053; 74177; Q9967; 99284